=== PATIENT | female | born 1970 | race Two or more races ===

== ENCOUNTER 2021-01-31 07:58 | Emergency (ER) | payer MEDICAID ==
[~2021-01-31] VITALS: Ht 149.9 cm; Wt 86.2 kg
[2021-01-31] MEDS ORDERED: cloNIDine HCL 0.1 MG TAB ONE (08:08)
[2021-01-31 08:13] VITALS: BP 197/93
[2021-01-31] MEDS ORDERED: cloNIDine HCL 0.1 MG TAB PO ONE (08:15)
[2021-01-31 09:48] LABS: Urine Bacteria FEW /hpf (None Seen); Urine Blood Negative /uL (Negative); Urine Mucus FEW (None Seen); Urine Specific Gravity 1.018 (1.001-1.035); Urine WBC 13 /hpf (0 - 5)
== END 2021-01-31 10:05 | disposition home or self-care (01) ==
LOC: ER 07:58
DX: S46.811A Strain of other muscles, fascia and tendons at shoulder and upper arm level, right arm, initial encounter (principal); N39.0 Urinary tract infection, site not specified; X50.1XXA Overexertion from prolonged static or awkward postures, initial encounter; Y93.89 Activity, other specified; Y92.89 Other specified places as the place of occurrence of the external cause; Y99.8 Other external cause status
CPT/HCPCS: 73080; 81001